=== PATIENT | female | born 1960 | race Two or more races ===

== ENCOUNTER 2024-07-18 03:10 | Emergency (ER) | payer OTHER ==
[~2024-07-18] VITALS: Ht 167.6 cm; Wt 90.7 kg
[2024-07-18] MEDS ORDERED: LISINOPRIL10 MG (03:31)
[2024-07-18] MEDS ORDERED: FOSAMAX70 MG (03:31)
[2024-07-18] MEDS ORDERED: HYDROCHLOROTHIA25 MG (03:31)
[2024-07-18] MEDS ORDERED: MAXALT10 MG (03:31)
[2024-07-18] MEDS ORDERED: OMEPRAZOLE MAGN20 MG (03:32)
[2024-07-18] MEDS ORDERED: PROMETHAZINE HCL 50 MG/ML AMPUL IM STA (03:56)
[2024-07-18] MEDS ORDERED: HYOSCYAMINE SULFATE 0.125 MG TAB.SUBL SL STA (03:57)
[2024-07-18] MEDS ORDERED: RINGERS SOLUTION,LACTATED 1,000 ML IV STA (03:57)
[2024-07-18] MEDS ORDERED: ONDANSETRON HCL 2 MG/ML VIAL IV STA (03:58)
[2024-07-18] MEDS ORDERED: FAMOtidine 10 MG/ML (4ML VIAL) IV PUSH STA (03:58)
[2024-07-18] MEDS ORDERED: DIPHENOXYLATE HCL/ATROPINE 1 UDTAB TABLET PO STA (03:59)
[2024-07-18] MEDS ORDERED: KETOROLAC TROMETHAMINE 30 MG VIAL IV STA (05:46)
== END 2024-07-18 06:48 | disposition home or self-care (01) ==
LOC: ER 03:12
DX: K52.9 Noninfective gastroenteritis and colitis, unspecified (principal)
CPT/HCPCS: 96365; 96372; 99283; J1885; J2250; J2405